=== PATIENT | female | born 1995 | race Caucasian/White ===

== ENCOUNTER 2018-11-01 15:20 | Inpatient (IN) | payer OTHER ==
--- NOTE | 2018-11-01 16:16 | ED ---
Psychiatric Complaint - HPI Summary HPI Summary: A 23 y/o female brought in by police and [facility] ambulance presents to [facility] with a chief complaint of SI today. The patients mother called police on the patient due to thoughts of self-harm. Per EMS, upon arrival the patient was not answering her door and was found in the bath tub holding a long kitchen blade. The patient had made several cuts to her arms and has superficial laceration to her left forearm. The patient has had some weight loss due to being depressed. - History Of Current Complaint Chief Complaint: EDSuicidal Time Seen by Provider: 11/01/18 15:36 Hx Obtained From: Patient, EMS, Other: - police Onset/Duration: Sudden Onset, Lasting Hours, Still Present Timing: Constant Severity Initially: Mild Severity Currently: Mild Character: Depressed Aggravating Factor(s): Nothing Alleviating Factor(s): Nothing Associated Signs And Symptoms: Positive: Negative Has Suicidal: Reports: Thoughts, With A Plan Has Homicidal: Denies: Thoughts - Allergies/Home Medications Allergies/Adverse Reactions: Allergies Allergy/AdvReac Type Severity Reaction Status Date / Time No Known Allergies Allergy Verified 11/01/18 16:49 Home Medications: Home Medications Levonorgestrel (Iud) [Mirena IUD] 20 mcg IU DAILY 11/01/18 [History Confirmed ] PMH/Surg Hx/FS Hx/Imm Hx Sensory History: Denies: Hx Deafness EENT History: Denies: Hx Deafness Infectious Disease History: No Infectious Disease History: Denies: Traveled Outside the [place] in Last 30 Days - Family History Known Family History: Negative: Blood Disorder - Social History Alcohol Use: Weekly Substance Use Type: Reports: Marijuana Smoking Status (MU): Smoker, Current Status Unknown Review of Systems Negative: Fever Psychological: Other - positive: SI All Other Systems Reviewed And Are Negative: Yes Physical Exam - Summary Physical Exam Summary: Appearance: The patient is well-nourished in no acute distress and in no acute pain. Skin: The skin is warm and dry and skin color reflects adequate perfusion. HEENT: The head is normocephalic and atraumatic. The pupils are equal and reactive. The conjunctivae are clear and without drainage. Nares are patent and without drainage. Mouth reveals moist mucous membranes and the throat is without erythema and exudate. The external ears are intact. The ear canals are patent and without drainage. The tympanic membranes are intact. Neck: The neck is supple with full range of motion and non-tender. There are no carotid bruits. There is no neck vein distension. Respiratory: Chest is non-tender. Lungs are clear to auscultation and breath sounds are symmetrical and equal. Cardiovascular: Heart is regular rate and rhythm. There is no murmur or rub auscultated. There is no peripheral edema and pulses are symmetrical and equal. Abdomen: The abdomen is soft and non-tender. There are normal bowel sounds heard in all four quadrants and there is no organomegaly palpated. Musculoskeletal: There is no back tenderness noted. Extremities are non-tender with full range of motion. There is good capillary refill. There is no peripheral edema or calf tenderness elicited. Neurological: Patient is alert and oriented to person, place and time. The patient has symmetrical motor strength in all four extremities. Cranial nerves are grossly intact. Deep tendon reflexes are symmetrical and equal in all four extremities. Psychiatric: The patient has an appropriate affect and does not exhibit any anxiety or depression. Triage Information Reviewed: Yes Vital Signs On Initial Exam: Initial Vitals Temp Pulse Resp BP Pulse Ox 98.6 F 77 16 104/65 100 11/01/18 15:31 11/01/18 15:31 11/01/18 15:31 11/01/18 15:31 11/01/18 15:31 Vital Signs Reviewed: Yes Diagnostics - Vital Signs Vital Signs Temp Pulse Resp BP Pulse Ox 11/01/18 15:31 98.6 F 77 16 104/65 100 - Laboratory Result Diagrams: 11/01/18 16:28 11/01/18 16:28 Lab Statement: Any lab studies that have been ordered have been reviewed, and results considered in the medical decision making process. Course/Dx - Course Course Of Treatment: Ms. Carbone was medically cleared and is awaiting a MHE. - Differential Dx/Clinical Impression Provider Diagnosis: Depression Discharge - Sign-Out/Discharge Documenting (check all that apply): Sign-Out Patient Signing out patient TO: Keven Chambers Patient Received Moderate/Deep Sedation with Procedure: No - Discharge Plan Condition: Stable Referrals: No Primary Care Phys,NOPCP [Primary Care Provider] - - Billing Disposition and Condition Condition: STABLE - Attestation Statements Document Initiated by Scribe: Yes Documenting Scribe: Wan Palacio Provider For Whom Scribe is Documenting (Include Credential): Oren Palumbo MD Scribe Attestation: I, Wan Palacio, scribed for Oren Palumbo MD on 11/01/18 at 1902. Scribe Documentation Reviewed: Yes Provider Attestation: The documentation as recorded by the dawsonibe, Wan Palacio accurately reflects the service I personally performed and the decisions made by me, Oren Palumbo MD Status of Scribe Document: Viewed
[2018-11-01] MEDS ORDERED: Nicotine Inhaler* 10 MG AMP INH PRN (16:21)
[2018-11-01 16:35] LABS: ABS Basophils 0 10^3/ul (0-0.2); ABS Eosinophils 0 10^3/ul (0-0.6); ABS Lymphocytes 1.3 10^3/ul (1.0-4.8); ABS Monocytes 0.4 10^3/ul (0-0.8); ABS Neutrophils 2.1 10^3/ul (1.5-7.7); ABS Nucleated RBC 0 10^3/ul; Eosinophil % 0.3 %; Hematocrit 41 % (33-41); Hemoglobin 13.7 g/dL (12.0-16.0); Lymphocyte % 33.6 %; Mean Corpuscular HGB Conc 33 g/dL (31-36); Mean Corpuscular Hemoglobin 29 pg (27-31); Mean Corpuscular Volume 87 fL (80-97); Mean Platelet Volume 9.8 fL (7.4-10.4); Nucleated Red Blood Cells % 0.1; Platelet Count 230 10^3/uL (150-450); Red Blood Count 4.77 10^6 /uL (3.70-4.87); Red Cell Distribution Width 13 % (10.5-15); White Blood Count 3.9 10^3/uL (3.5-10.8)
[2018-11-01 16:58] LABS: ALT 8 U/L (7-52); AST 18 U/L (13-39); Albumin 4.7 g/dL (3.2-5.2); Albumin/Globulin Ratio 1.6 (1-3); Alkaline Phosphatase 56 U/L (34-104); Anion Gap 7 mmol/L (2-11); Blood Urea Nitrogen 9 mg/dL (6-24); CO2 Carbon Dioxide 26 mmol/L (22-32); Calcium 9.7 mg/dL (8.6-10.3); Chloride 105 mmol/L (101-111); EGFR African American 84.7 (>60); Glucose 119 mg/dL (70-100); Potassium 3.7 mmol/L (3.5-5.0); Sodium 138 mmol/L (135-145); Total Protein 7.7 g/dL (6.4-8.9)
[2018-11-01] MEDS ORDERED: Mouth Piece, Nicotine* 1 EACH CARTRIDGE INH PRN (17:02)
[2018-11-01 17:04] LABS: HCG Pregnancy < 0.60 mIU/mL
[2018-11-01 17:41] LABS: Acetaminophen < 15 mcg/mL; Alcohol < 10 mg/dL (<10); Salicylate < 2.50 mg/dL (<30)
[2018-11-01 17:54] LABS: TSH (Thyroid Stimulating Horm) 0.83 mcIU/mL (0.34-5.60)
--- NOTE | 2018-11-01 19:08 | ED ---
Progress - Progress Note Progress Note: This patient was signed out from Dr. Palumbo to Dr. Chambers upon physician shift change pending mental health evaluation. Course/Dx - Course Course Of Treatment: This patient was signed out from Dr. Palumbo to Dr. Chambers upon physician shift change pending mental health evaluation. Dr. Paul, psychiatrist, recommends the patient be admitted to [facility] psychiatric facility. Dx severe depressive episode. Patient will be admitted to the [facility] psychiatric facility. - Diagnoses Provider Diagnoses: Severe depressive episode without psychotic symptoms - Provider Notifications Discussed Care Of Patient With: Rayshawn Paul Time Discussed With Above Provider: 01:54 Instructed by Provider To: Other - Dr. Paul, psychiatrist, recommends the patient be admitted to [facility] psychiatric facility. Dx severe depressive episode. Discharge - Sign-Out/Discharge Documenting (check all that apply): Patient Departure - admit to [facility] psych, Receiving Sign-Out Receiving patient FROM: Oren Palumbo - Discharge Plan Condition: Stable Disposition: PSYCHIATRIC FACILITY-[facility] Referrals: No Primary Care Phys,NOPCP [Primary Care Provider] - - Attestation Statements Document Initiated by Scribe: Yes Documenting Scribe: Jasmyn Lara Provider For Whom Scribe is Documenting (Include Credential): Keven Chambers MD Scribe Attestation: IJasmyn, scribed for Kveen Chambers MD on 11/02/18 at 0153. Status of Scribe Document: Ready
[2018-11-02] MEDS ORDERED: Acetaminophen TAB* 325 MG PO PRN (10:20)
[2018-11-02] MEDS ORDERED: Al Hydrox/Mg Hydrox/Simet LIQ* 30 ML UDC PO PRN (10:20)
[2018-11-02] MEDS: Vitamin THERAPEUTIC TAB PO SCH (13:07)
[2018-11-02] MEDS ORDERED: Gabapentin CAP(*) 300 MG PO PRN (13:57)
[2018-11-02 14:39] LABS: Cholesterol 140 mg/dL; HDL Cholesterol 56.1 mg/dL; LDL Cholesterol 75 mg/dL; Triglycerides 45 mg/dL
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
[2018-11-02] MEDS: Gabapentin CAP(*) 300 MG PO SCH (22:10)
[2018-11-03] MEDS: Vitamin THERAPEUTIC TAB PO SCH (12:19)
[2018-11-03] MEDS: Gabapentin CAP(*) 300 MG PO SCH (21:37)
[2018-11-04] MEDS: Vitamin THERAPEUTIC TAB PO SCH (09:09)
--- NOTE | 2018-11-04 15:58 | PN ---
Subjective - Subjective Date of Service: 11/04/18 Subjective: Shruthi endorses improvement in sleep, mood and anxiety. She avidly denies SI/HI or urges for sib and she contracts for safety. She denies side effects from trial of Neurotin. She has some craving for marijuana and appetite is poor is she used marijuana to stimulate her appetite. Per staff, she is adherent to unit 's routines. Objective - General Observations Appearance: Well Groomed Appears Stated Age: Yes - younger Stature: Short Posture: WNL Eye Contact: Average Behavior/Activity: WNL - Interaction Observations Attitude Towards Examiner: Cooperative Stated Mood: Euthymic Affect: Full Speech Pattern/Tone: Clear Thought Process: Coherent, Goal Directed Perception: WNL Thought Content: WNL Hallucination Type: None Delusion Type: None - Cognitive Function Orientation: A&O x 4 Level of Consciousness: Alert Cognition: WNL Estimated Intelligence: Normal - Medication Compliance Cooperative with Inpatient Medication Regimen: Yes - Group Participation Participates in Group Activities: Yes Assessment - Assessment Merits Inpatient Hospitalization: For Ongoing Evaluation, Consolidate Improvements, For Discharge Planning Clinical Impression: IMPRESSION: Shruthi is a single black female with significant social stressors that have led her to attempt suicide by cutting her wrists with a long kitchen knife. She was found sitting in a bathtub fully clothed by police who broke down her door. Safe on checks, reporting lower distress level, denying suicidality and layton for safety. Plan - Treatment Plan Level of Observation: 15 Minute Checks Other Treatment in Form of: Structure and Support, Therapeutic Milieu, Group Therapy, Individual Therapy, Medication Management Medications: Current Medications Acetaminophen (Tylenol Tab*) 650 mg PO Q4H PRN PRN Reason: PAIN or TEMP > 101 F Al Hydrox/Mg Hydrox/Simethicone (Maalox Plus*) 30 ml PO Q4H PRN PRN Reason: INDIGESTION Device (Nicotine Mouth Piece*) 1 each INH .USE W/ CARTRIDGE PRN PRN Reason: WITHDRAWAL - NICOTINE Gabapentin (Neurontin Cap(*)) 300 mg PO BEDTIME [facility] Last Admin: 11/03/18 21:37 Dose: 300 mg Gabapentin (Neurontin Cap(*)) 300 mg PO Q6H PRN PRN Reason: ANXIETY/INSOMNIA Multivitamins (Theragran Tab*) 1 tab PO DAILY [facility] Last Admin: 11/04/18 09:09 Dose: Not Given Nicotine (Nicotine Inhaler*) 10 mg INH Q2H PRN PRN Reason: CRAVING - Discharge Plan Discharge Plan: Outpatient Follow Up Outpatient Program: [facility]
[2018-11-04] MEDS: Gabapentin CAP(*) 300 MG PO SCH (21:10)
[2018-11-05] MEDS: Vitamin THERAPEUTIC TAB PO SCH (10:05)
--- NOTE | 2018-11-05 16:07 | PN ---
Subjective - Subjective Date of Service: 11/05/18 Service Type: [id number] Hosp care 15 min low complexity Subjective: Michelle is found in bed with the covers above her head. She states she's been irritable and remarks that it is unusual for her. We discuss that her usual habit of having marijuana TID and its current absence is probably contributing to her irritability. She agrees to try Neurontin 100 mg BID with 300 mg at bedtime. She states it doesn't sedate her, but it does slow down her thoughts. Objective - General Observations Appearance: Neat Appears Stated Age: Yes Stature: WNL Posture: Slumped Eye Contact: Avoidant Behavior/Activity: WNL - Interaction Observations Attitude Towards Examiner: Cooperative Stated Mood: Dysphoric, Irritable Affect: Flat Speech Pattern/Tone: Clear, Quiet Volume Thought Process: Coherent Perception: WNL Thought Content: Preoccupation/Ruminations Thought Process: Lethality: Passive Wish Hallucination Type: None Delusion Type: None - Cognitive Function Orientation: A&O x 4 Level of Consciousness: Awake, Alert, Appropriate Cognition: WNL Estimated Intelligence: Normal Insight: Difficulty Acknowledging Presence of Psyciatric Problems Judgment Within Normal Limits: No Ability to Make Reasonable Decisions: Mildly Impaired - Medication Compliance Cooperative with Inpatient Medication Regimen: Yes - Group Participation Participates in Group Activities: Partial Assessment - Assessment Merits Inpatient Hospitalization: For Immediate Safety Inpatient DSM-V Dx: F43.21 Clinical Impression: IMPRESSION: Michelle is a single black female with significant social stressors that have led her to attempt suicide by cutting her wrists with a long kitchen knife. She was found sitting in a bathtub fully clothed by police who broke down her door. Safe on checks, reporting lower distress level, denying suicidality and layton for safety. Plan - Plan Treatment Plan: Name: MICHELLE COSTELLO Birthdate: 1995 [id number] Continued Medication Management: Different Medication Medications: Current Medications Acetaminophen (Tylenol Tab*) 650 mg PO Q4H PRN PRN Reason: PAIN or TEMP > 101 F Al Hydrox/Mg Hydrox/Simethicone (Maalox Plus*) 30 ml PO Q4H PRN PRN Reason: INDIGESTION Device (Nicotine Mouth Piece*) 1 each INH .USE W/ CARTRIDGE PRN PRN Reason: WITHDRAWAL - NICOTINE Gabapentin (Neurontin Cap(*)) 300 mg PO BEDTIME [facility] Last Admin: 11/04/18 21:10 Dose: 300 mg Gabapentin (Neurontin Cap(*)) 300 mg PO Q6H PRN PRN Reason: ANXIETY/INSOMNIA Last Admin: 11/05/18 15:39 Dose: 300 mg Gabapentin (Neurontin Cap(*)) 100 mg PO 0900,1700 [facility] Multivitamins (Theragran Tab*) 1 tab PO DAILY [facility] Last Admin: 11/05/18 10:05 Dose: 1 tab Nicotine (Nicotine Inhaler*) 10 mg INH Q2H PRN PRN Reason: CRAVING - Discharge Plan Discharge Plan: Outpatient Follow Up Outpatient Program: [facility]
[2018-11-05] MEDS: Gabapentin CAP(*) 100 MG PO SCH (17:44)
[2018-11-05] MEDS: Gabapentin CAP(*) 300 MG PO SCH (21:46)
[2018-11-06 08:42] VITALS: BP 101/58
[2018-11-06] MEDS: Vitamin THERAPEUTIC TAB PO SCH (08:58)
[2018-11-06] MEDS: Gabapentin CAP(*) 100 MG PO SCH (08:58)
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
== END 2018-11-06 11:52 | disposition home or self-care (01) | DRG 881 ==
LOC: ED 15:20 → BSU 11-02 02:00 → ED 11-02 07:40
PROVIDERS: ADMIT Psychiatry & Neurology Psychiatry; ATTEND Psychiatry & Neurology Psychiatry
DX: F43.21 Adjustment disorder with depressed mood (principal); F12.90 Cannabis use, unspecified, uncomplicated; S61.512A Laceration without foreign body of left wrist, initial encounter; S61.511A Laceration without foreign body of right wrist, initial encounter; X78.1XXA Intentional self-harm by knife, initial encounter; Y92.214 College as the place of occurrence of the external cause; Z62.810 Personal history of physical and sexual abuse in childhood; Z81.3 Family history of other psychoactive substance abuse and dependence; Z81.1 Family history of alcohol abuse and dependence
CPT/HCPCS: 36415; 80053; 80061; 80320; 80329; 83036; 84443; 84702; 85025; 99222; 99231; 99238; 99284; A9270-GY; G0480